=== PATIENT | male | born 1945 | race Caucasian/White ===

== ENCOUNTER 2018-11-21 19:00 | Emergency (ER) | payer OTHER ==
[~2018-11-21] VITALS: Ht 180.3 cm; Wt 113.4 kg
[~2018-11-21 19:00] MED LIST: ALFALFA PO; AMARYL1 MG; AMARYL2 MG PO; ASPIRIN EC325 M1; BREWER'S YEAST500 MG PO; BUDEPRION SR150 MG; CARVEDILOL25 MG; CHLORTHALIDONE25 MG; CRESTOR40 MG; EFFIENT5 MG; FISHOIL; FLAXSEED OIL1000 MG; GLUCOPHAGE XR750 MG; LISINOPRIL-HCT1 EACH; LOPRESSOR100 MG; MULTIVITAMINS; NIACIN 100MG T100 M1; OMEPRAZOLE20 M2; OMEPRAZOLE40 MG PO; PRINZIDE 20-121 EACH PO; VITAMIN D31000 UNI2 PO; lecithin PO; milk thistle PO
[2018-11-21 19:29] LABS: ABSOLUTE BASOPHILS 0.1 thou/uL (0.0-0.2); ABSOLUTE EOSINOPHILS 0.1 thou/uL (0.0-0.7); ABSOLUTE LYMPHOCYTES 1.4 thou/uL (0.8-5.3); ABSOLUTE MONOCYTES 0.6 thou/uL (0.0-1.2); ABSOLUTE NEUTROPHILS 6.5 thou/uL (1.6-8.1); BASOPHILS 1.1 %; EOSINOPHILS 1.2 %; HEMATOCRIT 43.8 % (42.0-52.0); LYMPHOCYTES 16.3 %; MCH 30.6 pg (26.0-34.0); MCHC 34.2 g/dL (28.0-37.0); MCV 89.5 fL (80.0-100.0); MONOCYTES 7.2 %; MPV 6.3 fl. (7.2-11.1); NUCLEATED RBCS 0 /100WBC; PLATELET COUNT* 312 thou/uL (150-400); POLYS 74.2 %; RBC 4.89 mil/uL (4.50-6.00); RDW-CV 13.7 % (10.5-14.5); WBC 8.7 thou/uL (4.0-11.0)
[2018-11-21 19:43] LABS: CALCIUM 8.4 mg/dL (8.5-10.1); CREATININE 1.2 mg/dL (0.6-1.3); POTASSIUM 3.7 mmol/L (3.5-5.1)
[2018-11-21 20:58] VITALS: BP 166/77
--- NOTE | 2018-11-23 12:27 | EKG ---
[place] [address] ELECTROCARDIOGRAM REPORT Name: RUKHSANA LAYTON [id number] Admission: 11/21/18 Attend Phys: Discharge: 11/21/18 Date of : 41 Report #: [id number] THIS REPORT FOR: //name// [facility] ED Test Date: 2018-11-21 Test Time: 19:11:57 Pat Name: RUKHSANA LAYTON Department: Room: Gender: M Freight Handler: : 1945 Requested By: Suman Massey Order Number: [id number] MD: Cristian Lacey Measurements Intervals [place] Rate: 66 P: 47 MN: 258 QRS: 21 QRSD: 168 T: 59 QT: 438 QTc: 459 Interpretive Statements Sinus rhythm Prolonged MN interval Right bundle branch block Baseline wander in lead(s) V4 Compared to ECG 05/16/2011 17:26:27 Left-axis deviation no longer present Myocardial infarct finding no longer present Electronically Signed On 11-23-2018 12:26:53 MARINE EQUIPMENT RESEARCH ENGINEER by Cristian Lacey [email or web address] <ELECTRONICALLY SIGNED> By: Cristian Lacey MD, FACC 11/23/18 1226 10 10 Cristian Lacey MD, [facility] /EPI
== END 2018-11-21 20:58 | disposition home or self-care (01) ==
LOC: M.ERS 19:00
PROVIDERS: Emergency Medicine Emergency Medical Services
DX: I10 Essential (primary) hypertension (principal); J44.9 Chronic obstructive pulmonary disease, unspecified; K21.9 Gastro-esophageal reflux disease without esophagitis; G47.30 Sleep apnea, unspecified; E11.9 Type 2 diabetes mellitus without complications; Z95.5 Presence of coronary angioplasty implant and graft

== ENCOUNTER → 2019-04-28 | Outpatient (CLI) | payer OTHER | LOC: M.MRI 13:58 | DX: I67.82 Cerebral ischemia (principal); R41.3 Other amnesia; R26.9 Unspecified abnormalities of gait and mobility ==

== ENCOUNTER → 2019-06-15 | Outpatient (CLI) | payer OTHER | LOC: M.ULTRA 12:30 → M.RAD 12:49 → M.ULTRA 12:49 | DX: S90.32XA Contusion of left foot, initial encounter (principal); N43.2 Other hydrocele; N50.3 Cyst of epididymis; N50.89 Other specified disorders of the male genital organs; M19.072 Primary osteoarthritis, left ankle and foot; Z88.8 Allergy status to other drugs, medicaments and biological substances; X58.XXXA Exposure to other specified factors, initial encounter; Y93.89 Activity, other specified; Y92.89 Other specified places as the place of occurrence of the external cause; Y99.8 Other external cause status ==

== ENCOUNTER 2020-01-18 05:54 | Inpatient (IN) | payer OTHER ==
[2019-12-31 08:56] LABS: ABSOLUTE BASOPHILS 0.1 thou/uL (0.0-0.2); ABSOLUTE EOSINOPHILS 0.1 thou/uL (0.0-0.7); ABSOLUTE LYMPHOCYTES 1.3 thou/uL (0.8-5.3); ABSOLUTE MONOCYTES 0.5 thou/uL (0.0-1.2); ABSOLUTE NEUTROPHILS 4.9 thou/uL (1.6-8.1); BASOPHILS 1.7 %; EOSINOPHILS 1.7 %; HEMATOCRIT 40.6 % (42.0-52.0); MCH 31.1 pg (26.0-34.0); MCHC 34.5 g/dL (28.0-37.0); MCV 90.1 fL (80.0-100.0); MONOCYTES 7.8 %; MPV 6.2 fl. (7.2-11.1); NUCLEATED RBCS 0 /100WBC; PLATELET COUNT* 314 thou/uL (150-400); POLYS 69.8 %; RBC 4.51 mil/uL (4.50-6.00); RDW-CV 13.8 % (10.5-14.5)
[2019-12-31 09:06] LABS: APTT 25.4 Seconds (25.0-31.3); PROTIME 10.4 Seconds (9.20-11.50)
[2019-12-31 09:10] LABS: ALBUMIN 3.1 g/dL (3.4-5.0); POTASSIUM 4.1 mmol/L (3.5-5.1); TOTAL BILIRUBIN 0.6 mg/dL (<0.1-1.0); TOTAL PROTEIN 6.1 g/dL (6.4-8.2)
[2019-12-31 10:50] LABS: ESR (SEDRATE) 5 mm/hr (0-20)
[2019-12-31 23:08] LABS: GLYCOHEMOGLOBIN (HGB A1C) 7.1 % (4.8-5.6)
--- NOTE | 2020-01-08 14:57 | EKG ---
[place] [address] ELECTROCARDIOGRAM REPORT Name: RUKHSANA LAYTON Room: [facility].#: [id number] Admission: Attend Phys: Raoul Severino DO Discharge: Date of : 41 Date of Service: 12/31/19909 Report #: [id number] THIS REPORT FOR: //name// [facility] Test Date: 2019-12-31 Test Time: 09:10:16 Pat Name: RUKHSANA LAYTON Department: Room: Gender: Dry Kiln Feeder: : 1945 Requested By: Raoul Severino Order Number: [id number] Kenrick MD: Raoul Ortega Measurements Intervals [place] Rate: 66 P: 124 IN: 371 QRS: -87 QRSD: 146 T: 82 QT: 427 QTc: 448 Interpretive Statements Sinus rhythm left anterior fasicular block Prolonged IN interval Right bundle branch block Anterolateral infarct, old Compared to ECG 11/21/2018 19:11:57 Myocardial infarct finding now present Electronically Signed On 12-31-2019 9:57:06 COMPUTER TYPESETTER KEYLINER by Raoul Ortega [email or web address] <ELECTRONICALLY SIGNED> By: Raoul Otrega MD, [facility] 12/31/19 0957 0910 Raoul Ortega MD, [facility] /EPI
[~2020-01-18] VITALS: Ht 180.3 cm; Wt 120.2 kg
--- NOTE | ~2020-01-18 | OP ---
[address] [place] [address] OPERATIVE REPORT Name: RUKHSANA LAYTON Room: [place] [address] ADM IN M.R.#: [id number] Admission: 01/18/20 Attend Phys: Tesha Kaur Discharge: Date of : 41 Report #: [id number] THIS REPORT FOR: //name// cc: Nasreen Avila Linda J. DO ~ THIS REPORT FOR: //name// CC: Raoul Urbina DICTATED BY: Audi Caban DO DATE OF SERVICE: 01/18/2020 PREOPERATIVE DIAGNOSIS: Right knee, primary osteoarthritis. POSTOPERATIVE DIAGNOSIS: Right knee, primary osteoarthritis. OPERATION PERFORMED: Right total knee arthroplasty. SURGEON: Raoul Severino DO BOOSTER STATION OPERATOR: Audi Caban DO and Renato Lamas DO ESTIMATED BLOOD LOSS: 100 mL. ANTIBIOTICS: 2 g IV Ancef given within 1 hour of skin incision. ANESTHESIA: General plus local injection of posterior capsule and postoperative adductor canal block to be performed by the Anesthesia Team. DRAINS: None. SPECIMENS: None. COMPLICATIONS: None. CONDITION: Stable. DISPOSITION: PACU to Med/Surg Floor. SURGICAL IMPLANTS: The Pavan Persona system was used with following components: 1. A size 11 cruciate retaining standard with femoral component. 2. A size H tibial component. [address] [place] [address] OPERATIVE REPORT Name: RUKHSANA LAYTON Room: [address] IN ..#: [id number] Admission: 01/18/20 Attend Phys: Tesha Kaur Discharge: Date of : 41 Report #: [id number] 3. A size 35 mm patellar component. 4. A 12 mm thickness vitamin E highly crosslinked polyethylene articular surface with medial congruent, also 2 bags of Palacos bone cement were utilized for implantation. OPERATIVE INDICATIONS: This patient is a pleasant 74-year-old male who is followed in orthopedic clinic regarding his longstanding right knee pain. Radiographs and exam are consistent with severe degenerative changes of the knee with varus deformity and flexion contracture. He had been trying conservative treatment over the last several years with activity modifications, bracing, anti-inflammatories, and injections. Despite trying all these things, he continued to have significant pain, which was interfering with his activities of daily living; therefore, we did discuss a right total knee arthroplasty. Risks, indications, and treatment alternatives were reviewed with the patient and his informed consent was obtained. DESCRIPTION OF PROCEDURE: The patient was taken to the operating suite and placed on the table in supine position where general anesthesia was then induced. A well-padded tourniquet was placed on the right proximal thigh. Of note, this was inflated at 300 mmHg for a total of 72 minutes throughout the procedure. The right lower extremity was then sterilely prepped and draped, free in the usual fashion. Timeout was then performed to confirm that safety checklist had been completed and all the present OR personnel were in agreement. A midline incision was marked out over the right knee. A tourniquet was inflated. A 20-blade scalpel was used to incise the skin and then through the subcutaneous tissue down to the level of the extensor mechanism. Full thickness subcutaneous flaps were developed. A new blade was then used to make the standard medial parapatellar arthrotomy. Subperiosteal sleeve was developed off the medial tibial plateau. The patella was then everted. Infrapatellar fat pad was debrided. Retractors were placed. Access was gained to the intramedullary canal of the femur with a large drill. The distal femur cutting block was set to resect 12 mm from the distal femur at 5 degrees of valgus. The cutting block was pinned into position and the cut was made through the capture block. The bony wafer was then removed. The femur was measured from anterior to posterior with the sizing guide. The 3-degree external rotation holes were drilled. We initially did cut with a size 12, 4-in-1 cutting block. However, after cutting the anterior cut, we were able to downsize to an 11, which fit more appropriately. The remaining cuts were made through the capture block making sure to protect the collateral ligaments. Bony wafers were then removed as were the remaining osteophytes. Attention was then taken to the proximal tibia. The extramedullary guide was set to resect 10 mm from the lateral high side. This was then aligned in all planes perpendicular to the mechanical axis. The cutting block was pinned into position. The cut was then made through the capture block. Bony cut wafer was then removed. The knee was taken to full extension and a 10 block was placed and found to be appropriate resection was taken. Therefore, the remaining pins were removed. We did note there was some [address] [address] OPERATIVE REPORT Name: RUKHSANA LAYTON Room: 150-2 [facility] IN M.R.#: [id number] Admission: 01/18/20 Attend Phys: Tesha Kaur Discharge: Date of : 41 Report #: [id number] tightness medially. The knee was then flexed up again. The meniscal remnants were removed as were the osteophytes from the medial tibial plateau and medial femur. A curved osteotome was used to remove the posterior osteophytes from the femur. At this time, the tibial plateau was then appropriately measured and a trial baseplate was pinned in the appropriate rotation. Trial femur was then placed. We then trialed multiple sizes tibial bearings. Ultimately, there was some tightness medially. Therefore, a medial release was performed releasing some of the MCL from the femoral attachment as well as using the Alvarez elevator on the tibia. This was found to improve the balance in the coronal plane. The trial spacer and femoral components were removed. The tibia was prepared for final implantation with the reamer and cruciform punch. Prior to this, we did cut the patella with a freehand technique resecting approximately 8 mm thickness of the patella. The peg holes were then drilled through the guide. A patellar button was placed and taken through full range of motion and found to be tracking appropriately. Once all the trial components had been removed, the knee was copiously irrigated. Some small drill holes were placed in the medial tibial plateau to improve cement interdigitation. The anesthetic cocktail was placed mostly within the posterior capsular structures as well as some within the surrounding periosteum. The bone cement was mixed on the back table. All the bony cut surfaces were well dried. The bone was then pressurized within the inner stitches of the bone and also applied to the undersurface of the final components which were then impacted into position beginning with the tibia, followed by the femur and finally the patellar component, which was clamped into position. All the excess bone cement was sharply excised. A 12 mm spacer was trialed and it was found to give full range of motion and stable in both the sagittal and coronal planes. A knee was placed in full extension and the cement was allowed to completely harden. The trial spacer was then removed. A final irrigation was performed and some final pieces of bone cement were removed. The final spacer was then appropriately locked into position and the knee was taken through final range of motion, has 0-130 degrees of motion and was stable in both the sagittal and coronal planes. The knee was then placed in 90 degrees of flexion and the layered closure was then performed beginning with #1 Vicryl suture in etcevx-jv-ydxfc fashion throughout the extensor mechanism, this was then oversewn with #1 Stratafix suture throughout the extensor mechanism. The 2-0 Vicryl were used subcutaneous followed by running 3-0 Stratafix suture. Skin glue was applied to the incision and allowed to dry, followed by application of a Mepilex dressing and thigh high MINI hose. The patient tolerated the procedure well with no apparent complications. Sponge and needle counts reported correct per the OR personnel. ATTESTATION: Dr. Raoul Severino was present for all critical aspects of surgery. By: [id number] Severino DO /nt
[~2020-01-18 05:54] MED LIST changes: +ANORO ELLIPTA1 EACH INH; -ASPIRIN EC325 M1; +ASPIRIN EC325 M1 PO; -CARVEDILOL25 MG; +CARVEDILOL25 MG PO; -CRESTOR40 MG; +CRESTOR40 MG PO; +HYDRALAZINE 10M10 MG PO; +MICARDIS40 MG PO; -MULTIVITAMINS; +MULTIVITAMINS PO; +NOVOLOG100 UNIT/M SUBQ; +PLAVIX 75 MG TA75 MG PO; +PROAIR HFA8.5 GM INH; +TRESIBA FL100 UNIT/1 SUBQ; +ZETIA10 MG PO
[2020-01-18 12:21] VITALS: BP 146/88
--- NOTE | 2020-01-18 15:05 | NUR ---
ORDER RECEIVED FOR "OT EVALUATION AND TREATMENT". PLAN TO DEFER TO PHYSICAL THERAPY AT THIS TIME.
--- NOTE | 2020-01-18 17:44 | NUR ---
pt alert and oriented. pain meds given as ordered. pt on o2 and fluids infusing. cpm in room. polar pack in place. niurka hose on bilat. fall risk precautions in place. hourly rounding completed. will continue to monitor.
[2020-01-18 20:00] VITALS: BP 128/68
[2020-01-18 23:58] VITALS: BP 146/73
[2020-01-19 03:48] LABS: HEMATOCRIT 36.9 % (42.0-52.0); HEMOGLOBIN 12.5 gm/dL (14.0-18.0)
[2020-01-19 04:29] VITALS: BP 117/59
[2020-01-19 10:09] VITALS: BP 114/56
[2020-01-19 11:31] VITALS: BP 114/56
[2020-01-19] MEDS ORDERED: TRAMADOL 50 MG50 MG PO (11:51)
[2020-01-19] MEDS ORDERED: ELIQUIS2.5 MG PO (11:51)
[2020-01-19] MEDS ORDERED: OXYCODONE HCL 55 MG PO (11:52)
--- NOTE | 2020-01-19 14:51 | NUR ---
CALLED IN PT.S PRESCRIPTION WRITTEN FOR TONI TO HIS [facility]ARM[facility] ([phone]), ABOUT 1130. CALLED BACK AT THIS TIME TO CHECK COPAY. THEY HAD NOT YET GOTTEN PRESCRIPTION OFF PHARMACY LINE. CM OR NURSING WILL NEED TO CALL BACK LATER TO CHECK COPAY.
[2020-01-19 16:00] VITALS: BP 136/64
--- NOTE | 2020-01-19 16:25 | NUR ---
PT A&Ox4. VITALS STABLE. IV PATENT. PAIN PARTIALLY CONTROLLED. DENIED NAUSEA. DRESSING C/D/I. TEDS, FOOT PUMPS AND POLAR PACK IN PLACE. UP WITH ONE USING WALKER AND GAIT BELT. FALL PRECAUTIONS IN PLACE. CALL LIGHT WITHIN REACH. WILL CONTINUE TO MONITOR.
[2020-01-19 21:34] VITALS: BP 180/89
[2020-01-20 03:14] LABS: HEMATOCRIT 35.6 % (42.0-52.0); HEMOGLOBIN 12.2 gm/dL (14.0-18.0)
--- NOTE | 2020-01-20 05:46 | NUR ---
PATIENT WAS ABLE TO GET PAIN RELIEF WITH SCHEDULED TYLENOL AND 10 MG OXYCODONE IR Q4. HE IS ABLE TO GET UP WITH ASSISTANCE. ALERT AND ORIENTED, ROOM AIR. CPM USED. PLAN IS TO WORK FURTHER WITH PT/OT. WILL CONTINUE TO FOLLOW PLAN OF CARE.
[2020-01-20 08:10] VITALS: BP 155/82
[2020-01-20 16:00] VITALS: BP 152/73
--- NOTE | 2020-01-20 17:45 | NUR ---
PT A&Ox4. SLOW TO PROCESS INSTRUCTIONS. IV PATENT. PAIN PARTIALLY CONTROLLED. UP WITH 1. BM TODAY. POSSIBLE NEED FOR SNF. FALL PRECAUTIONS IN PLACE. DRESSING C/D/I. TEDS, SCDS AND POLAR PACK IN PLACE. [place]TA LIGHT WITHIN REACH. WILL CONTINUE TO MONITOR.
[2020-01-20 20:47] VITALS: BP 150/67
--- NOTE | 2020-01-21 04:50 | NUR ---
PATIENT REQUIRES EXTRA TIME TO GET UP OUT OF BED. HE PREFERRED TO SLEEP IN CHAIR FOR COMFORT. HE IS ABLE TO USE URINAL/NO ISSUES WITH TOLERATING FLUIDS. ALERT AND ORIENTED X4 NO SIGNS OF CONFUSION. PAIN SEEMS WELL TOLERATED. HE RECEIVED SCHEDULED TYLENOL AND 1 OX IR 10MG AT 2023. PLAN IS TO WORK FURTHER WITH PT/OT. HE WAS ABLE TO SLEEP ALL SHIFT. WILL CONTINUE TO FOLLOW PLAN OF CARE.
--- NOTE | 2020-01-21 18:01 | NUR ---
CM INFORMED BY THE PHYSICIAN OF THE NEED TO SPEAK TO THE PT ABOUT SNF PLACEMENT. CM SPOKE TO THE PT AND HE REQUEST THAT A REFERRAL BE SENT TO HIS FIRST CHOICE [facility] AND SECOND CHOICE [facility]. PT SIGNED CHOICE OF VENDOR FORM AND COPY IS PLACED ON THE CHART. CM FAXED REFERRAL INFO TO [facility]. CM WILL F/U WILL [facility] TO DISCUSS ABILITY TO ACCEPT THE PT. CM WILL REMAIN AVAILABLE TO ASSIST AND FOLLOW NEEDED.
--- NOTE | 2020-01-21 19:00 | NUR ---
PATIENT PLEASANT AND COOPERATIVE W/ ASSESS AND CARES. USING FWW W/ SBA. SURG SITE YANA WNL. USING POLAR PACK THRU SHIFT. THIGH HI TEDS ON BLE. SEE JAN. IV SITE WNL. REFUSED CPM THIS AFTERNOON. ~TJRN
[2020-01-22] VITALS: BP 132/61
[2020-01-22 04:00] VITALS: BP 145/78
--- NOTE | 2020-01-22 04:34 | NUR ---
PATIENT HAS REMAINED ALERT AND ORIENTED X 4 THROUGHOUT THE SHIFT AND RESTING QUIETLY ON HOURLY ROUNDS. UP MIN/MOD ASSIST WITH GAIT BELT AND WALKER. MEDICATED FOR PAIN X 2 OF THIS WRITING. DRESSING RIGHT KNEE CLEAN AND DRY. [facility] UTIL[facility]. REFUSED HS SESSION OF CPM. WILL ENCOURAGE AGAIN THIS AM. VITAL SIGNS STABLE. CONTINUE TO MONITOR.
[2020-01-22 05:23] LABS: ALBUMIN 2.3 g/dL (3.4-5.0); CALCIUM 7.7 mg/dL (8.5-10.1); CREATININE 1.2 mg/dL (0.6-1.3); POTASSIUM 3.5 mmol/L (3.5-5.1)
[2020-01-22 05:43] LABS: HEMATOCRIT 32.3 % (42.0-52.0); MCV 91.1 fL (80.0-100.0); RBC 3.54 mil/uL (4.50-6.00); RDW-CV 14.9 % (10.5-14.5)
[2020-01-22 09:30] VITALS: BP 160/84
[2020-01-22 15:08] VITALS: BP 114/56
[2020-01-22 15:13] VITALS: BP 114/56
--- NOTE | 2020-01-22 15:49 | NUR ---
CM WAS INFORMED BY THE PHYSICIAN OF THE PATIENT'S REQUEST TO RETURN HOME WITH HH TODAY. PT INFORMS THAT HE IS 'CONFIDIENT IN MY IMPROVEMENT' AND IS 'READY TO GO HOME'. PT ALSO INFORMS THAT HIS ' IS AN OLD C.N.A. AND DTR-IN-LAW IS A OCCUPATIONAL THERAPIST. SO THEY CAN ASSIST AT HOME IF NEEDED'. CM SPOKE TO PT'S SPOUSE AN DIL AND THEY REQUEST [facility] FOR HH. CM INFORMED [facility] OF THE [facility] REFERRAL AND FAXED THE PT'S H&P, FACESHEET, ADN D/C ORDERS. PT TO D/C HOME TODAY WITH [facility] PROVIDED BY HIS SPOUSE. CM WILL REMAIN AVAILABLE TO ASSIST AND FOLLOW NEEDED. [facility] PHONE: [phone] FAX: [phone]
[2020-01-22 17:50] VITALS: BP 114/56
--- NOTE | 2020-01-22 19:05 | NUR ---
DISHARGE TO HOME W/ HOME HEALTH CARE SERVICES. PATIENT ALERT AND ORIENTED THRU SHIFT, SEE MAR. PLEASANT AND COOEPRATIVE W/ ASSESS AND CARES. CPM USED THIS AM AND THIS AFTERNOON, -5 TO 63. DRSG TO SURG SITE NOTED CDI. TEDS ON BLE. USING POLAR PACK THRU SHIFT. SCDs WHILE IN BED. DISCHARGE INSTRUCTIONS REVIEWED W/ PATIENT, PATIENT STATES VERBALLY OF UNDERSTNADING. PATIENT DRESSES SELF. IV SITE DISCONTINUED, CATH TIP INTACT. COTTON BALL/TAPE APPLIED TO SITE. COPY OF DISCHARGE INSTRUCTIONS AND ORIG SCRIPTS GIVEN TO PATIENT. BELONINGS GATHERED W/ NURSING ASST. WALKER AND POLAR PACK ALSO GATHERED. PATIENT ESCORTED TO AWAITING VEHICLE W/ NURSING PRESENT. UMAIRONINGS WITH PATIENT OFF UNIT. MET AT [facility] BY . PATIENT DENIES OTHER NURSING NEEDS. HRLY ROUNDS DONE THRU SHIFT. ~TJRN
== END 2020-01-22 19:05 | disposition home health service (06) | DRG 470 ==
LOC: M.TBA 05:54 → M.PRE 08:15 → M.ORTHSURG 09:59 → M.TBA 09:59 → M.PRE 11:07 → M.ORTHSURG 12:09 → M.PRE 13:33 → M.ORTHSURG 01-22 19:05
PROVIDERS: Orthopaedic Surgery; ADMIT Internal Medicine
PROC: 0SRC0J9 Replacement of Right Knee Joint with Synthetic Substitute, Cemented, Open Approach (ICD-10-PCS; principal; 2020-01-18)
PROC: 3E0T3BZ Introduction of Anesthetic Agent into Peripheral Nerves and Plexi, Percutaneous Approach (ICD-10-PCS; principal; 2020-01-18)
DX: M17.11 Unilateral primary osteoarthritis, right knee (principal); J98.11 Atelectasis; E11.9 Type 2 diabetes mellitus without complications; I25.10 Atherosclerotic heart disease of native coronary artery without angina pectoris; G47.33 Obstructive sleep apnea (adult) (pediatric); R09.02 Hypoxemia; J44.9 Chronic obstructive pulmonary disease, unspecified; K21.9 Gastro-esophageal reflux disease without esophagitis; Z96.1 Presence of intraocular lens; E78.00 Pure hypercholesterolemia, unspecified; M81.0 Age-related osteoporosis without current pathological fracture; I48.91 Unspecified atrial fibrillation; M10.9 Gout, unspecified; I10 Essential (primary) hypertension; E78.5 Hyperlipidemia, unspecified; Z91.19 Patient's noncompliance with other medical treatment and regimen; Z79.4 Long term (current) use of insulin; Z79.899 Other long term (current) drug therapy; Z79.82 Long term (current) use of aspirin; Z95.5 Presence of coronary angioplasty implant and graft; Z98.49 Cataract extraction status, unspecified eye; Z72.89 Other problems related to lifestyle

== ENCOUNTER → 2020-02-17 | Outpatient (CLI) | payer OTHER ==
[~2020-02-17] MED LIST changes: +ELIQUIS2.5 MG PO; +OXYCODONE HCL 55 MG PO; +TRAMADOL 50 MG50 MG PO
== END ==
LOC: M.ULTRA 15:37
DX: R60.9 Edema, unspecified (principal); I10 Essential (primary) hypertension

== ENCOUNTER → 2020-07-21 | Outpatient (CLI) | payer OTHER | LOC: M.ULTRA 09:28 | PROVIDERS: ATTEND Specialist | DX: R22.9 Localized swelling, mass and lump, unspecified (principal) ==

== ENCOUNTER → 2021-01-11 | Outpatient (CLI) | payer OTHER | LOC: M.ULTRA 15:35 | PROVIDERS: ATTEND Specialist | DX: K80.20 Calculus of gallbladder without cholecystitis without obstruction (principal); K76.89 Other specified diseases of liver ==

== ENCOUNTER → 2021-02-21 | Day surgery (SDC) | payer OTHER ==
--- NOTE | ~2021-02-21 | OP ---
[address] [address] OPERATIVE REPORT Name: RUKHSANA LAYTON Room: [facility].#: [id number] Admission: 02/21/21 Attend Phys: Nick Lockett DO Discharge: Date of : 41 Report #: [id number] THIS REPORT FOR: cc: Nasreen Avila Linda J. DO Kramer,Nick Wood DO ~ DATE OF SERVICE: 02/21/2021 REFERRING PHYSICIAN: Dr. Nasreen Avila. PREOPERATIVE DIAGNOSES: Symptomatic cholelithiasis and umbilical hernia. POSTOPERATIVE DIAGNOSES: Symptomatic cholelithiasis and umbilical hernia. PROCEDURE: Laparoscopic cholecystectomy and umbilical hernia repair. SURGEON: Nick Lockett MD HOSPITAL FELLOW: Dr. Mook King DO, PGY-1, resident. SECOND USER ACCEPTANCE TESTER: Student, Dr. Je Clemente MS3. ANESTHESIA: General endotracheal and TAP blocks. ESTIMATED BLOOD LOSS: Less than 20 mL. COMPLICATIONS: None. DESCRIPTION OF PROCEDURE: After obtaining proper consents and discussing risks and complications with the patient, he was taken to the operating room, laid in the supine position, administered general endotracheal anesthetic. TAP blocks were then performed by Anesthesia as well. He was then prepped and draped in the usual sterile fashion. A timeout was performed. We confirmed the appropriate patient and procedure. Preoperative antibiotics had been given. SCDs were in place. We then made a small supraumbilical skin incision with a #11 scalpel blade. This was carried down into the subcutaneous tissue using electrocautery for hemostasis. Once within the subcutaneous tissue, I dissected the umbilical hernia sac free. The sac was dissected away from the umbilicus. I then opened the hernia sac and inverted its contents back into the peritoneal cavity. We excised the hernia sac and passed it off as specimen. Next, 2-0 Prolene sutures were placed in a huuoju-st-wgbrl fashion in the fascia to secure the Pao trocar, which was then inserted and insufflation was begun. Once insufflation was complete, full visual inspection of the anterior abdominal organs was performed. This revealed a fatty appearing liver. There was a large amount of omental fat. The gallbladder was distended [place] [address] OPERATIVE REPORT Name: RUKHSANA LAYTON Room: [facility].#: [id number] Admission: 02/21/21 Attend Phys: Nick Lockett DO Discharge: Date of : 41 Report #: [id number] appearance. We then placed the patient in reverse Trendelenburg position. He was rotated to the left. Three more 5 mm trocars were placed, one in the subxiphoid position, two in the right upper quadrant. We were then able to grasp and elevate the gallbladder. There were some omental adhesions to the gallbladder, which were taken down using electrocautery and blunt dissection. Once we were able to identify Roman's pouch it was grasped and elevated. The hepatoduodenal ligament was stripped down until I was able to visualize the cystic duct and cystic artery as they coursed directly into the gallbladder. We identified the critical view of safety including the cystic duct, cystic artery, common hepatic duct and common bile duct. Calot's node was also identified. There were two structures and only 2 structures entering the gallbladder. These were clipped proximally and distally and then divided between clips. The gallbladder was then removed from the liver bed using electrocautery. During this dissection, I did tear the gallbladder a little bit and some bile leaked out. This was immediately suctioned and after the gallbladder was completely removed, we then copiously irrigated and assured hemostasis within the wound. We also placed the gallbladder immediately into an Endopouch. The subhepatic space and perihepatic space were irrigated with saline solution and all fluid was aspirated back. I checked the cystic duct and cystic artery stumps for any leak or bleeding and also the liver bed, which all appeared dry. We then stopped the insufflation, placed the patient back into his normal supine position. The trocars were removed under direct vision and the gallbladder was removed through the umbilical hernia defect. We then repaired the umbilical hernia using the 2 previously placed 0 Prolene sutures +3 additional 0 Prolene sutures. Skin incisions were all closed using 4-0 Monocryl subcuticular stitches and Dermabond. The patient was awakened in the operating room and transported to recovery room in stable condition. By: [id number] Israel Lockett DO /marissa
[2021-02-21 07:18] LABS: HEMATOCRIT 43.7 % (42.0-52.0); HEMOGLOBIN 14.4 gm/dL (14.0-18.0); MCH 30.4 pg (26.0-34.0); MCV 92.2 fL (80.0-100.0); MPV 6.1 fl. (7.2-11.1); RBC 4.75 mil/uL (4.50-6.00); RDW-CV 13.7 % (10.5-14.5); WBC 5.5 thou/uL (4.0-11.0)
[2021-02-21 07:28] LABS: CALCIUM 9.1 mg/dL (8.5-10.1); CREATININE 1.5 mg/dL (0.6-1.3); POTASSIUM 3.7 mmol/L (3.5-5.1)
[2021-02-21 07:33] LABS: ALBUMIN 3.7 g/dL (3.4-5.0); TOTAL BILIRUBIN 0.7 mg/dL (<0.1-1.0); TOTAL PROTEIN 7.1 g/dL (6.4-8.2)
--- NOTE | 2021-02-21 14:21 | EKG ---
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: : 1945 Requested By: Nick Lockett Order Number: [id number] Reading MD: Cristian Lacey Measurements Intervals [place] Rate: 53 P: 65 SC: 393 QRS: -88 QRSD: 163 T: 56 QT: 467 QTc: 439 Interpretive Statements Sinus rhythm Prolonged SC interval Right bundle branch block Compared to ECG 12/31/2019 09:10:16 Myocardial infarct finding no longer present Electronically Signed On 02-21-2021 14:21:40 CDT by Cristian Lacey [email or web address] <ELECTRONICALLY SIGNED> By: Cristian Lacey MD, [facility] 02/21/21 1421 0751 0751 Cristian Lacey MD, [facility] /EPI
--- NOTE | 2021-02-23 17:06 | PATH ---
[address] [address] PATHOLOGY RPT PROCEDURE Name: JEFF COFFEY Room: [facility].#: [id number] Admission: 02/21/21 Date of : 41 Discharge: Report #: [id number] Path Case #: [id number] [facility] Accession Number: [id number] . 01 Material submitted: . gallbladder - GALLBLADDER WITH CONTENTS . 01 Clinical history: . LAPAROSCOPIC CHOLECYSTECTOMY HERNIA REPAIR, UMBILICAL CALCULUS OF GALLBLADDER WITH CHOLECYSTITIS WITHOUT OBSTRUCTION UMBILICAL HERNIA POST OP DIAGNOSIS SAME PREOP . 02 Diagnosis: Gallbladder and contents: - Chronic cholecystitis and cholelithiasis. . (DAYTON:mml; 02/23/2021) [facility] 02/23/2021 1613 Local . 02 Electronically signed: . Garth Hameed MD, Pathologist NPI- [id number] . 01 Gross description: . The specimen is received in formalin, labeled "Jeff Coffey", "gallbladder and contents". Received is an intact gallbladder measuring 6.5 x 3.2 x 1.5 cm. The external surface is wrinkled, shiny and pale green-yellow. Opening the gallbladder reveals a green-yellow, velvety, bile-stained mucosa with no polypoid adhesions or solid masses identified. The gallbladder wall measures 0.2-0.3 cm in thickness. Calculi are present and range in size from 0.1 cm to 0.3 cm. Parks And Recreation Manager sections are submitted in cassette A1.(SNA; 02/22/2021) [facility] 02/23/2021 1611 Local . 02 Pathologist provided ICD-10: K80.10 . 02 CPT . 565530 Specimen Comment: A courtesy copy of this report has been sent to [phone], [phone] Specimen Comment: [id number] Specimen Comment: Report sent to / DR GODWIN Performed at: [address] [id number] [place] [address] PATHOLOGY RPT PROCEDURE Name: JEFF COFFEY Room: [facility].Mihai#: [id number] Admission: 02/21/21 Date of : 41 Discharge: Report #: [id number] Path Case #: [id number] MD August Lou MD Phone: [phone] Performed at: [address] [address] Avelina [address]anna, [place], [place] [id number] MD Garth Hameed MD Phone: [phone]
== END | disposition home or self-care (01) ==
LOC: M.SUR 05:17
PROVIDERS: ATTEND Surgery
DX: K80.10 Calculus of gallbladder with chronic cholecystitis without obstruction (principal); K42.9 Umbilical hernia without obstruction or gangrene; R10.9 Unspecified abdominal pain; I10 Essential (primary) hypertension; Z98.890 Other specified postprocedural states; Z79.899 Other long term (current) drug therapy; Z79.82 Long term (current) use of aspirin; Z20.822 Contact with and (suspected) exposure to COVID-19

== ENCOUNTER 2021-03-28 14:34 | Observation (INO) | payer OTHER ==
[~2021-03-28] VITALS: Ht 182.9 cm; Wt 120.6 kg
[2021-03-28 14:39] VITALS: BP 134/63
[2021-03-28 15:32] LABS: CALCIUM 8.6 mg/dL (8.5-10.1); CREATININE 1.6 mg/dL (0.6-1.3); POTASSIUM 3.4 mmol/L (3.5-5.1)
[2021-03-28 15:46] LABS: ALBUMIN 3.6 g/dL (3.4-5.0); CK-MB MASS 1.5 ng/mL (<0.5-3.6); MAGNESIUM 2.1 mg/dL (1.8-2.4); TOTAL BILIRUBIN 0.6 mg/dL (<0.1-1.0); TOTAL PROTEIN 6.7 g/dL (6.4-8.2)
[2021-03-28 15:49] LABS: ABSOLUTE BASOPHILS 0.1 thou/uL (0.0-0.2); ABSOLUTE EOSINOPHILS 0.2 thou/uL (0.0-0.7); ABSOLUTE LYMPHOCYTES 1.4 thou/uL (0.8-5.3); ABSOLUTE MONOCYTES 0.6 thou/uL (0.0-1.2); ABSOLUTE NEUTROPHILS 3.9 thou/uL (1.6-8.1); BASOPHILS 1.3 %; EOSINOPHILS 2.5 %; HEMATOCRIT 39.6 % (42.0-52.0); HEMOGLOBIN 13.6 gm/dL (14.0-18.0); LYMPHOCYTES 22.7 %; MCH 31.1 pg (26.0-34.0); MCHC 34.3 g/dL (28.0-37.0); MCV 90.6 fL (80.0-100.0); MONOCYTES 9.7 %; MPV 6.2 fl. (7.2-11.1); NUCLEATED RBCS 0 /100WBC; PLATELET COUNT* 297 thou/uL (150-400); POLYS 63.8 %; RBC 4.37 mil/uL (4.50-6.00); RDW-CV 13.7 % (10.5-14.5); WBC 6.1 thou/uL (4.0-11.0)
[2021-03-28 15:54] LABS: APTT 23.9 Seconds (25.0-31.3); PROTIME 10.4 Seconds (9.20-11.50)
[2021-03-28 17:32] VITALS: BP 122/50
[2021-03-28 17:33] VITALS: BP 119/57
[2021-03-28] MEDS ORDERED: FISH OIL 1,0001 EAC9 PO (17:51)
[2021-03-28 20:00] VITALS: BP 118/49
[2021-03-29 00:34] VITALS: BP 115/41
[2021-03-29 04:17] VITALS: BP 128/67
[2021-03-29 05:53] LABS: ABSOLUTE BASOPHILS 0.1 thou/uL (0.0-0.2); ABSOLUTE EOSINOPHILS 0.2 thou/uL (0.0-0.7); ABSOLUTE LYMPHOCYTES 1.4 thou/uL (0.8-5.3); ABSOLUTE MONOCYTES 0.6 thou/uL (0.0-1.2); BASOPHILS 1.3 %; EOSINOPHILS 3.5 %; HEMATOCRIT 39.9 % (42.0-52.0); HEMOGLOBIN 13.7 gm/dL (14.0-18.0); LYMPHOCYTES 22.4 %; MCH 31.2 pg (26.0-34.0); MCHC 34.2 g/dL (28.0-37.0); MCV 91.2 fL (80.0-100.0); MONOCYTES 9.2 %; MPV 6.3 fl. (7.2-11.1); NUCLEATED RBCS 0 /100WBC; PLATELET COUNT* 271 thou/uL (150-400); POLYS 63.6 %; RBC 4.37 mil/uL (4.50-6.00); RDW-CV 13.7 % (10.5-14.5); WBC 6.3 thou/uL (4.0-11.0)
[2021-03-29 06:16] LABS: ALBUMIN 3.4 g/dL (3.4-5.0); CALCIUM 8.4 mg/dL (8.5-10.1); CREATININE 1.4 mg/dL (0.6-1.3); MAGNESIUM 2.1 mg/dL (1.8-2.4); PHOSPHORUS* 4.4 mg/dL (2.5-4.9); POTASSIUM 3.4 mmol/L (3.5-5.1); TOTAL BILIRUBIN 0.5 mg/dL (<0.1-1.0); TOTAL PROTEIN 6.3 g/dL (6.4-8.2)
[2021-03-29] MEDS ORDERED: XARELTO20 MG PO (12:12)
[2021-03-29 12:28] VITALS: BP 141/73
--- NOTE | 2021-03-29 12:36 | 2DMMODE ---
[place] [address] 2 D/M-MODE ECHOCARDIOGRAM Name: RUKHSANA LAYTON Room: [address] MShon#: [id number] Admission: 03/28/21 Attend Phys: Tom Urbina Discharge: Date of : 41 Date of Service: 03/29/21 1236 Report #: [id number] THIS REPORT FOR: cc: Nasreen Avila,Nasreen Huerta,Dario Uriostegui MD [facility] ~ APPROVED REPORT Study performed: 03/29/2021 10:19:55 EXAM: Comprehensive 2D, Doppler, and color-flow Echocardiogram Patient Location: In-Patient Room #: [facility] Status: routine BSA: 2.39 HR: 63 bpm BP: 128/67 mmHg Rhythm: NSR Other Information Study Quality: Good Indications Atrial Fibrillation Bradycardia 2D Dimensions IVSd: 10.00 (7-11mm) LVOT Diam: 29.53 (18-24mm) LVDd: 53.82 mm PWd: 9.74 (7-11mm) Ascending Ao: 36.95 (22-36mm) LVDs: 38.65 (25-40mm) Aortic Root: 38.96 mm Volumes Left Atrial Volume (Systole) LA ESV Index: 29.70 mL/m2 Aortic Valve AoV Peak Jorge.: 1.23 m/s AO Peak Gr.: 6.04 mmHg LVOT Max P.06 mmHg AO Mean Gr.: 3.44 mmHg LVOT Mean P.89 mmHg LVOT Max V: 1.01 m/s AO V2 VTI: 25.50 cm LVOT Mean V: 0.63 m/s MARGA (VTI): 5.35 cm2 LVOT V1 VTI: 19.91 [place] [address] 2 D/M-MODE ECHOCARDIOGRAM Name: RUKHSANA LAYTON Room: [address] M.R.#: [id number] Admission: 03/28/21 Attend Phys: Tom Urbina Discharge: Date of : 41 Date of Service: 03/29/21 1236 Report #: [id number] Mitral Valve E/A Ratio: 0.84 MV Decel. Time: 167.89 ms MV E Max Jorge.: 0.71 m/s MV PHT: 48.69 ms MVA (PHT): 4.52 cm2 TDI E/Lateral E': 5.92 Lateral E' Jorge.: 0.12 m/s Pulmonary Valve PV Peak Jorge.: 0.86 m/s PV Peak Gr.: 2.96 mmHg Tricuspid Valve RAP Estimate: 5.00 mmHg TR Peak Gr.: 21.12 mmHg RVSP: 26.00 mmHg PA Pressure: 26.00 mmHg Left Ventricle The left ventricle is normal size. Regional wall motion abnormalities are noted with distal septal and apical akinesis. There is normal left ventricular wall thickness. Left ventricular systolic function is mild to moderately decreased. LVEF is 40-45%. Grade I - abnormal relaxation pattern. Right Ventricle The right ventricle is normal size. The right ventricular systolic function is normal. Atria The left atrium size is normal. The right atrium size is normal. Aortic Valve Mild aortic valve sclerosis. Trace aortic regurgitation. There is no aortic valvular stenosis. Mitral Valve The mitral valve is normal in structure. Trace mitral regurgitation. No evidence of mitral valve stenosis. Tricuspid Valve The tricuspid valve is normal in structure. Trace tricuspid regurgitation. [place] [address] 2 D/M-MODE ECHOCARDIOGRAM Name: CALINRUKHSANA SUE Room: [address]#: [id number] Admission: 03/28/21 Attend Phys: Tom Urbina Discharge: Date of : 41 Date of Service: 03/29/21 1236 Report #: [id number] Pulmonic Valve The pulmonary valve is normal in structure. Trace pulmonic regurgitation. Great Vessels The aortic root is normal in size. IVC is normal in size and collapses >50% with inspiration. Pericardium There is no pericardial effusion. <Conclusion> The left ventricle is normal size. There is normal left ventricular wall thickness. Left ventricular systolic function is mild to moderately decreased. LVEF is 40-45%. Grade I - abnormal relaxation pattern. The right ventricle is normal size. The left atrium size is normal. Mild aortic valve sclerosis. Trace aortic regurgitation. There is no aortic valvular stenosis. The mitral valve is normal in structure. The tricuspid valve is normal in structure. IVC is normal in size and collapses >50% with inspiration. There is no pericardial effusion. Regional wall motion abnormalities are noted with distal septal and apical akinesis. <ELECTRONICALLY SIGNED> By: Dario Blanco MD, FACC 03/29/21 1236 1236 1236 Dario Blanco MD, FACC /INF
--- NOTE | 2021-03-29 12:57 | CON ---
[address] [address] CONSULTATION Name: RUKHSANA LAYTON Room: [address] M.R.#: [id number] Admission: 03/28/21 Attend Phys: Tesha Kaur Discharge: Date of : 41 Report #: [id number] THIS REPORT FOR: cc: Nasreen Avila Linda J. DO Liston, Michael J. MD [facility] ~ DOC #: [id number] cc: Nasreen Avila DO, Dr. Akin Michael J. Liston, MD DATE OF CONSULTATION: 03/28/2021 CARDIOLOGY CONSULTATION INDICATION: Heart block. HISTORY OF PRESENT ILLNESS: The patient is a 75-year-old gentleman with prior history of coronary artery disease with stenting several years ago. Cardiac records not here. He presents with complaints of dizziness, lightheadedness and fatigue. He was found to be in atrial fibrillation with an underlying ventricular escape rhythm at a heart rate of 37 beats. He is hemodynamically stable otherwise. He is not having chest pain. Enzymes are unremarkable. At the time of my interview, his heart rate is now 57. He does take carvedilol. He is on no other rate controlling medications. He has been having symptoms for the past 4-6 weeks. PAST MEDICAL HISTORY: 1. Coronary artery disease with previous percutaneous coronary intervention. 2. Type 2 diabetes mellitus. 3. Hyperlipidemia. 4. Hypertension. 5. Asthma. 6. COPD. 7. GERD. 8. Obstructive sleep apnea. 9. History of right arthroscopic knee surgery. 10. Tonsillectomy remotely. REPORTED HOME MEDICATIONS: Fish oil 1000 mg b.i.d., aspirin 1 tablet daily, rosuvastatin 40 mg daily, multivitamin one tablet daily, albuterol inhaler 2 puffs q.4-6 hours p.r.n., Anoro Ellipta inhaler once daily, Plavix 75 mg daily, carvedilol 25 mg b.i.d., NovoLog insulin 15 units subcu at bedtime, hydralazine 10 mg 2 tablets b.i.d. p.r.n., Tresiba 28 units daily, Micardis 40 mg daily, oxycodone IR 5 mg q.6h[place] [address] CONSULTATION Name: RUKHSANA LAYTON [address]#: [id number] Admission: 03/28/21 Attend Phys: Tesha Kaur Discharge: Date of : 41 Report #: [id number] ALLERGIES: None documented. SOCIAL HISTORY: The patient drinks alcohol. He denies use of tobacco. He is . His is with him. REVIEW OF SYSTEMS: As per HPI, otherwise unremarkable. PHYSICAL EXAMINATION: VITAL SIGNS: Presently vital signs are stable. Blood pressure 134/63, pulse 57 and regular. GENERAL: This is a pleasant gentleman in no distress. Mood and affect appropriate. HEENT: Extraocular muscles appear to be intact. Mucous membranes are moist. NECK: Shows no jugular venous distention. CARDIAC: Reveals an irregular rhythm that is rate controlled. I do not appreciate gallop or murmur. ABDOMEN: Reveals normal bowel sounds. The abdomen is soft, nontender. CHEST: Reveals clear lung vaughan without wheezes or rales. EXTREMITIES: Shows trace ankle edema. SKIN: Warm and dry. LABORATORY AND DIAGNOSTIC DATA: A 12-lead EKG on arrival shows underlying atrial fibrillation with a ventricular escape rhythm with a rate of 36 beats per minute. Labs are reviewed. Sodium 138, potassium 3.4, chloride 103, bicarbonate 28, BUN 35, creatinine 1.6, serum glucose 214. LFTs within normal limits. Coags within normal limits. White blood cell count 6.1, hemoglobin 13.6, platelet count 297,000. Troponin less than 0.06. IMPRESSION AND RECOMMENDATIONS: 1. Heart block. The patient is on carvedilol. This will be held. Admit for continued monitoring. I do not see need for temporary pacemaker at this point in time. 2. Atrial fibrillation. Start anticoagulation. No need obviously for rate controlling at this time. If the patient were to develop ventricular response, I think this would indicate underlying sick sinus syndrome and necessitate pacemaker placement. 3. Hypertension. Blood pressure adequately controlled at this time. We will make adjustments to medications as no other rate controlling medications at this time. 4. Dyslipidemia. Continue rosuvastatin and Zetia at current doses. 5. History of coronary artery disease, presently appears stable. His troponins are unremarkable. He is not having any symptoms to suggest acute coronary [address] [place] [address] CONSULTATION Name: RUKHSANA LAYTON Room: [address] Judd UriosteguiR.#: [id number] Admission: 03/28/21 Attend Phys: Tesha Kaur Discharge: Date of : 41 Report #: [id number] syndrome. Cristian Lacey MD MJL/ORL <ELECTRONICALLY SIGNED> By: Cristian Lacey MD, FACC 03/29/21 1257 1722 0222[facility] Lacey MD, FACC /nt
--- NOTE | 2021-03-29 14:19 | EKG ---
[place] [address] ELECTROCARDIOGRAM REPORT Name: RUKHSANA LAYTON Room: [address]#: [id number] Admission: 03/28/21 Attend Phys: Tom Urbina Discharge: 03/29/21 Date of : 41 Date of Service: 03/28/21 1441 Report #: [id number] THIS REPORT FOR: //name// [facility] ED Test Date: 2021-03-28 Test Time: 14:41:08 Pat Name: RUKHSANA LAYTON Department: Room: [address] Gender: M Network Administrator: RUSSEL : 1945 Requested By: Tom Urbina Order Number: [id number] Kenrick MD: Dario Blanco Measurements Intervals [place] Rate: 38 P: [place]: QRS: -89 QRSD: 173 T: 60 QT: 484 QTc: 385 Interpretive Statements Atrial flutter with variable atrioventricular conduction block Right bundle branch bloc Possible inferolateral scar Baseline wander in lead(s) II,III,aVR,aVF,V2 Compared to ECG 02/21/2021 07:51:17 Sinus rhythm no longer present First degree AV block no longer present Electronically Signed On 03-29-2021 14:19:13 CDT by Dario Blanco [email or web address] <ELECTRONICALLY SIGNED> By: Dario Blanco MD, [facility] 03/29/21 1419 144 144 Dario Blanco MD, [facility] /EPI
--- NOTE | 2021-03-29 14:20 | EKG ---
[place] [address] ELECTROCARDIOGRAM REPORT Name: CALINRUKHSANA ROGERS Room: [address] M.R.#: [id number] Admission: 03/28/21 Attend Phys: Tom Urbina Discharge: 03/29/21 Date of : 41 Date of Service: 03/28/21 1447 Report #: [id number] THIS REPORT FOR: //name// [facility] ED Test Date: 2021-03-28 Test Time: 14:47:39 Pat Name: RUKHSANA LAYTON Department: Room: [facility] Gender: M Temporary Office Assistant: RUSSEL : 1945 Requested By: Sarmad Kingston Order Number: [id number] MD: Dario Blanco Measurements Intervals [place] Rate: 36 P: [place]: QRS: -90 QRSD: 166 T: 64 QT: 487 QTc: 377 Interpretive Statements A-flutter/fibrillation with high-grade AV block Right bundle branch block Compared to prior EKG Degree of AV block is more pronounced Electronically Signed On 03-29-2021 14:20:17 CDT by Dario Blanco [email or web address] <ELECTRONICALLY SIGNED> By: Dario Blanco MD, [facility] 03/29/21 1420 1447 1447 Dario Blanco MD, [facility] /EPI
== END 2021-03-29 13:39 | disposition home or self-care (01) ==
LOC: M.ERS 14:34 → M.2W 15:34 → M.TBA-ER 15:34 → M.2W 17:15
PROVIDERS: Family Medicine; ADMIT Internal Medicine; ATTEND Internal Medicine
DX: R42 Dizziness and giddiness (principal); Z20.822 Contact with and (suspected) exposure to COVID-19; I44.2 Atrioventricular block, complete; I25.10 Atherosclerotic heart disease of native coronary artery without angina pectoris; I25.2 Old myocardial infarction; I48.91 Unspecified atrial fibrillation; J44.9 Chronic obstructive pulmonary disease, unspecified; E11.65 Type 2 diabetes mellitus with hyperglycemia; K21.9 Gastro-esophageal reflux disease without esophagitis; G47.30 Sleep apnea, unspecified; E11.22 Type 2 diabetes mellitus with diabetic chronic kidney disease; N18.30 Chronic kidney disease, stage 3 unspecified; E78.00 Pure hypercholesterolemia, unspecified; Z79.899 Other long term (current) drug therapy

== ENCOUNTER → 2021-05-11 | Outpatient (CLI) | payer OTHER ==
[~2021-05-11] VITALS: Ht 180.3 cm; Wt 119.3 kg
[~2021-05-11] MED LIST changes: +ADULT LOW DOSE81 MG PO; +FISH OIL 1,0001 EAC9 PO; +FISH OIL-OMEGA1 EACH PO; +INVOKANA100 MG PO; +LANTUS SUBQ; +XARELTO20 MG PO
[2021-05-11 10:45] VITALS: BP 133/73
[2021-05-11 11:05] LABS: HEMATOCRIT 40.8 % (42.0-52.0); HEMOGLOBIN 14.1 gm/dL (14.0-18.0); MCH 32.4 pg (26.0-34.0); MCHC 34.6 g/dL (28.0-37.0); MCV 93.6 fL (80.0-100.0); RBC 4.36 mil/uL (4.50-6.00); RDW-CV 15.3 % (10.5-14.5); WBC 6.1 thou/uL (4.0-11.0)
[2021-05-11 11:18] LABS: ALBUMIN 3.7 g/dL (3.4-5.0); CALCIUM 8.7 mg/dL (8.5-10.1); CREATININE 1.5 mg/dL (0.6-1.3); POTASSIUM 3.6 mmol/L (3.5-5.1); PROTIME 10.2 Seconds (9.20-11.50); TOTAL BILIRUBIN 0.6 mg/dL (<0.1-1.0)
[2021-05-11 13:40] VITALS: BP 118/76
[2021-05-11 14:20] VITALS: BP 132/73
[2021-05-11 15:20] VITALS: BP 146/74
--- NOTE | 2021-05-11 15:25 | EKG ---
[place] [address] ELECTROCARDIOGRAM REPORT Name: RUKHSANA LAYTON Room: [facility]#: [id number] Admission: 05/11/21 Attend Phys: Cristian Lacey, Discharge: Date of : 41 Date of Service: 05/11/21 1426 Report #: [id number] THIS REPORT FOR: //name// [facility] Test Date: 2021-05-11 Test Time: 14:26:29 Pat Name: RUKHSANA LAYTON Department: Room: Gender: Care Management Assistant: : 1945 Requested By: Cristian Lacey Order Number: [id number] Reading MD: Raoul Ortega Measurements Intervals [place] Rate: 69 P: [place]: QRS: -76 QRSD: 182 T: 100 QT: 447 QTc: 479 Interpretive Statements Afib/flutter and ventricular-paced rhythm No further analysis attempted due to paced rhythm Compared to ECG 03/28/2021 14:47:39 paced beats now noted Electronically Signed On 05-11-2021 15:25:36 CDT by Raoul Ortega [email or web address] <ELECTRONICALLY SIGNED> By: Raoul Ortega MD, [facility] 05/11/21 1525 1426 1426 Raoul Ortega MD, [facility] /EPI
--- NOTE | 2021-05-11 17:03 | CARD ---
[address] [address] CARDIAC CATH REPORT Name: RUKHSANA LAYTON Room: [facility]#: [id number] Admission: 05/11/21 Attend Phys: Cristian Lacey MD Discharge: Date of : 41 Report #: [id number] THIS REPORT FOR: cc: Nasreen Avila Linda J. DO Liston, Michael J. MD [facility] ~ APPROVED REPORT Study performed: 05/11/2021 11:56:26 Patient Status: Out-Patient Room #: Event Personnel: Cristian Lacey Storage Facility Housekeeper, Patti Lomax RN Workforce Management Manager, Racheal Medina RTR Monitor, Lillie Lockett RTR Scrub Exam: Insertion of Dual Chamber Permanent Pacemaker The patient is a 75 year-old male with a history of . Conscious Sedation Start time: 12:45 End Time: 13:19 Fentanyl 25 mcg Versed 1 mg Implanted Devices: BIOTRONIK PACEMAKER. MODEL: EDORA 8 BOBBY. SERIAL: [id number]. BIOTRONIK VENTRICULAR LEAD. MODEL: SOLIA S 53. SERIAL: [id number]. BIOTRONIK ATRIAL LEAD. MODEL: SOLIA S 45. SERIAL: [id number]. Procedure The patient underwent informed consent. We discussed the details of the procedure including the risks, which include, but not limited to bleeding, infection, vascular damage, cardiac perforation, and pneumothorax. He understood these risks and was willing to proceed. As such, he was brought to the EP/Cardiac Catheterization laboratory in a fasting and sedated state and prepped and draped in a sterile fashion, received IV antibiotics prior to initiation of the procedure and a venogram was performed showing patency of the right axillary vein. The patient underwent conscious sedation, with no related complications. The patient was brought to the EP/Cardiac Catheterization laboratory and the right chest and shoulder were prepped and draped [place] [address] CARDIAC CATH REPORT Name: CALINRUKHSANA SUE Room: [facility]#: [id number] Admission: 05/11/21 Attend Phys: Cristian Lacey MD Discharge: Date of : 41 Report #: [id number] During this case, Fluoroscopy and visipaque 15cc were used for imaging. IV conscious sedation was used throughout procedure with appropriate monitoring and was performed in the presence of a registered nurse who was an independent trained observer other than the physician performing the procedure. The right subclavian region was infiltrated with 2% Lidocaine with Epinephrine subcutaneous anesthesia. A transverse incision was made in the right upper chest cavity. The subcutaneous pocket was formed via blunt dissection. Percutaneous venous access was achieved and an introducer sheath was inserted into the right Subclavian vein. Through the introducer sheaths the atrial and ventricular lead wires were positioned in the right atrial appendage and right ventricular apex respectively. Utilizing fluoroscopic guidance, the atrial and ventricular lead wires were advanced over the wires and positioned in the right atria and right ventricle respectively. Capturing and sensing thresholds were verified. Ancef 2 gram IV, given pre-procedure start. Electrode Parameters P Wave: 3.3 mV R Wave: 11.8 mV Atrial Threshold: 1.9 V at 0.40 ms Ventricular Threshold: 1.3 V at 0.40 ms Atrial Resistance: 514 ohms Ventricular Resistance: 645 ohms Dual Chamber The atrial and ventricular leads were then secured using 0 silk sutures. The subcutaneous pocket was irrigated with Ancef 1 gram antibiotic solution.The atrial and ventricular leads were attached to the appropriate receptacles on the pulse generator and set screws firmly tightened to insure adequate contact and stability. The lead and pulse generator were placed into the subcutaneous pocket. Sharp and sponge counts were confirmed to be correct. At this time the pocket was closed subcutaneously with a 2.0 Vicryl and the skin was closed with a 4.0 Vicryl. The operative site was dressed in sterile fashion with benzoin spray, steri strips, telfa, tegaderm and the patient was transferred to the floor in stable condition. Complications The patient tolerated the procedure well and there were no [facility] [address] [place] [address] CARDIAC CATH REPORT Name: CALINRUKHSANA SUE Room: [facility]#: [id number] Admission: 05/11/21 Attend Phys: Cristian Lacey MD Discharge: Date of : 41 Report #: [id number] complications associated with the procedure. Findings Specimens Removed: No Estimated Blood Loss: < 5ml Conclusion 1. Paroxysmal atrial fibrillation and sick sinus syndrome. 2. Successful placement of a dual-chamber pacemaker with atrial and ventricular lead placement. Recommendations 1. Follow-up site check in 1 week. 2. Follow-up device interrogation in 1 month. <ELECTRONICALLY SIGNED> By: Cristian Lacey MD, FACC 05/11/211701 01 01[email or web address] Lacey MD, FACC /INF
== END | disposition home or self-care (01) ==
LOC: M.CL 10:19
PROVIDERS: ATTEND Internal Medicine Cardiovascular Disease
DX: I49.5 Sick sinus syndrome (principal); I48.0 Paroxysmal atrial fibrillation; E11.22 Type 2 diabetes mellitus with diabetic chronic kidney disease; N18.2 Chronic kidney disease, stage 2 (mild); J44.9 Chronic obstructive pulmonary disease, unspecified; I25.2 Old myocardial infarction; E78.00 Pure hypercholesterolemia, unspecified; K21.9 Gastro-esophageal reflux disease without esophagitis; G47.30 Sleep apnea, unspecified; Z98.890 Other specified postprocedural states; Z79.899 Other long term (current) drug therapy; Z96.651 Presence of right artificial knee joint; Z90.49 Acquired absence of other specified parts of digestive tract; Z87.19 Personal history of other diseases of the digestive system

== ENCOUNTER → 2021-06-15 | Outpatient (CLI) | payer OTHER ==
[2021-06-15 13:06] LABS: ALBUMIN 3.7 g/dL (3.4-5.0); CALCIUM 8.8 mg/dL (8.5-10.1); CREATININE 1.5 mg/dL (0.6-1.3); POTASSIUM 3.6 mmol/L (3.5-5.1); TOTAL BILIRUBIN 0.7 mg/dL (<0.1-1.0)
== END ==
LOC: M.LAB 12:15
PROVIDERS: ATTEND Registered Nurse
DX: I48.92 Unspecified atrial flutter (principal); E11.9 Type 2 diabetes mellitus without complications

== ENCOUNTER → 2021-12-18 | Outpatient (CLI) | payer OTHER ==
[2021-12-18 10:49] LABS: CHOLESTEROL 118 mg/dL (<200); CK-MB MASS 2.2 ng/mL (<0.5-3.6); HDL CHOLESTEROL 36 mg/dL (>40); LDL CHOLESTEROL 67 mg/dL (<100); TC:HDL 3.3 Ratio (Not establshd); TRIGLYCERIDE 77 mg/dL (<150); VLDL 15 mg/dL (<40)
[2021-12-18 10:51] LABS: SERUM ASSESSMENT Clear
[2021-12-18 21:14] LABS: ALBUMIN 3.5 g/dL (3.4-5.0); DIRECT BILIRUBIN 0.2 mg/dL (<0.1-0.3); TOTAL BILIRUBIN 0.7 mg/dL (<0.1-1.0); TOTAL PROTEIN 6.5 g/dL (6.4-8.2)
[2021-12-19 02:06] LABS: GLYCOHEMOGLOBIN (HGB A1C) 7.7 % (4.8-5.6)
== END ==
LOC: M.LAB 09:44
PROVIDERS: ATTEND Internal Medicine Cardiovascular Disease
DX: I48.0 Paroxysmal atrial fibrillation (principal); I25.5 Ischemic cardiomyopathy; E78.5 Hyperlipidemia, unspecified; I25.10 Atherosclerotic heart disease of native coronary artery without angina pectoris; M47.814 Spondylosis without myelopathy or radiculopathy, thoracic region; Z79.899 Other long term (current) drug therapy